=== PATIENT | female | born 1995 | race African-American/Black ===

== ENCOUNTER 2020-11-08 08:53 | Inpatient (IN) | payer OTHER, MEDICAID ==
[~2020-11-08] VITALS: Ht 170.2 cm; Wt 138.3 kg
[2020-11-08] MEDS ORDERED: HALO5TAB2 PO (12:18)
[2020-11-08] MEDS ORDERED: ESCI-8 PO (12:18)
[2020-11-08] MEDS ORDERED: PROP10TA73 PO (12:18)
[2020-11-08] MEDS ORDERED: LAMO100 PO (12:18)
[2020-11-08] MEDS ORDERED: TOPI100T37 PO (12:18)
[2020-11-08] MEDS ORDERED: QUET300T2 PO (12:18)
[2020-11-08 12:46] LABS: BASOPHILS % (AUTO) 0.5 % (0.0-2.0); EOSINOPHILS % (AUTO) 0.9 % (1.0-6.0); HEMATOCRIT 33.7 % (36-46); HEMOGLOBIN 10.4 g/dL (12.0-16.0); LYMPHOCYTES % (AUTO) 27.8 % (22.0-44.0); MEAN CORPUSCULAR HGB CONC 30.9 G/dL (31.0-37.0); MEAN CORPUSCULAR VOLUME 78 fL (80-100); MONOCYTES # (AUTO) 0.4 K/uL (0.1-1.0); MONOCYTES % (AUTO) 5.7 % (2.0-9.0); NEUTROPHILS # (AUTO) 4.7 K/uL (1.8-7.7); NEUTROPHILS % (AUTO) 65.1 % (40.0-70.0); PLATELET COUNT (AUTO) 560 K/uL (150-450); RED BLOOD CELL COUNT(AUTO) 4.34 MIL/uL (4.00-5.20); RED CELL DISTRIBUTION WIDTH 18.4 % (11.5-14.5)
[2020-11-08 13:07] LABS: ALANINE AMINOTRANSFERASE 12 U/L (12-78); ALBUMIN 2.7 g/dL (3.4-5.0); ALKALINE PHOSPHATASE 89 U/L (46-116); ANION GAP 9 mmol/L (8-16); ASPARTATE AMINOTRANSFERASE 12 U/L (15-37); CARBON DIOXIDE 21 mmol/L (22-29); CHLORIDE 105 mmol/L (98-107); CREATININE 0.97 mg/dL (0.60-1.30); GLOMERULAR FILTR. RATE CALC > 60 mL/min (>60); GLUCOSE,RANDOM 108 mg/dL (70-110); POTASSIUM 3.8 mmol/L (3.5-5.1); SODIUM SERUM 135 mmol/L (136-145); TOTAL PROTEIN, SERUM 8.4 g/dL (6.4-8.2); UREA NITROGEN, BLOOD 7 mg/dL (7-18)
[2020-11-08 13:24] LABS: BILIRUBIN,TOTAL 0.1 mg/dL (0.1-1.0); CALCIUM, TOTAL 8.5 mg/dL (8.8-10.5)
[2020-11-08 16:09] LABS: HCG,QUANTITATIVE 1 mIU/mL (0-6)
[2020-11-08 16:22] LABS: COVID AG,FIA SOURCE NASOPHARYNGEAL
[2020-11-08 18:04] VITALS: BP 140/91
[2020-11-08] MEDS ORDERED: INFLUENZA VIRUS VACCINE QVS 2020-21 (6MO+)/PF 60 MCG/0.5 ML SYRINGE IM ONE (18:15)
[2020-11-08] MEDS: LORazepam 2 MG TABLET PO PRN (20:11)
[2020-11-08] MEDS: HALOPERIDOL 5 MG TABLET PO PRN (21:20)
[2020-11-09 08:25] VITALS: BP 126/72
[2020-11-09] MEDS ORDERED: ACETAMINOPHEN 325 MG TABLET PO PRN (09:00)
[2020-11-09] MEDS ORDERED: ALBUTEROL SULFATE HFA 90 MCG/PUFF 8 GM INHALER IH PRN (09:00)
[2020-11-09] MEDS ORDERED: NICOTINE 14 MG/24 HOUR PATCH TD PRN (09:00)
[2020-11-09] MEDS ORDERED: PETROLATUM,WHITE 28 GM JELLY TP PRN (09:00)
[2020-11-09] MEDS ORDERED: LOPERAMIDE HCL 2 MG CAPSULE PO PRN (09:00)
[2020-11-09] MEDS ORDERED: CloNIDine HCL 0.1 MG TABLET PO PRN (09:00)
[2020-11-09] MEDS ORDERED: IBUPROFEN 400 MG TABLET PO PRN (09:00)
[2020-11-09] MEDS ORDERED: MAGNESIUM HYDROXIDE SUSPENSION 30 ML UDCUP PO PRN (09:00)
[2020-11-09] MEDS ORDERED: DOCUSATE SODIUM 100 MG CAPSULE PO PRN (09:00)
[2020-11-09] MEDS ORDERED: MAG HYDROX/AL HYDROX/SIMETH ES 30 ML SUSPENSION UDCUP PO PRN (09:00)
[2020-11-09] MEDS ORDERED: GuaiFENesin/D-METHORPHAN [SUGAR-FREE] 200-20MG/10 ML SYRUP UDCUP PO PRN (09:00)
[2020-11-09] MEDS: HALOPERIDOL 5 MG TABLET PO PRN ×2 (09:21→21:16)
[2020-11-09] MEDS: PROPRANOLOL HCL 10 MG TABLET PO SCH ×2 (09:21→17:40)
[2020-11-09] MEDS: LORazepam 2 MG TABLET PO PRN (09:22)
[2020-11-09] MEDS: ESCITALOPRAM OXALATE 10 MG TABLET PO SCH (12:33)
[2020-11-09] MEDS: QUEtiapine FUMARATE 25 MG TABLET PO SCH ×2 (12:33→16:05)
[2020-11-09 16:00] VITALS: BP 97/60
[2020-11-09] MEDS: TOPIRAMATE 100 MG TABLET PO SCH (16:05)
[2020-11-09 16:33] LABS: GLUCOMETER DEV NAME(LOC) 3E.C; GLUCOSE,POINT OF CARE 101 MG/DL (70-110)
[2020-11-09] MEDS ORDERED: PROPRANOLOL HCL 10 MG TABLET PO SCH (17:00)
[2020-11-09] MEDS: LamoTRIgine 100 MG TABLET PO SCH (20:20)
[2020-11-09] MEDS: QUEtiapine FUMARATE 300 MG TABLET PO SCH (20:20)
[2020-11-10 07:05] LABS: GLUCOMETER DEV NAME(LOC) 3E.C; GLUCOSE,POINT OF CARE 81 MG/DL (70-110)
[2020-11-10 08:00] VITALS: BP 109/65
[2020-11-10] MEDS: PROPRANOLOL HCL 10 MG TABLET PO SCH ×2 (08:12→16:23)
[2020-11-10] MEDS: ESCITALOPRAM OXALATE 10 MG TABLET PO SCH (08:12)
[2020-11-10] MEDS: QUEtiapine FUMARATE 25 MG TABLET PO SCH ×3 (08:13→16:23)
[2020-11-10] MEDS: TOPIRAMATE 100 MG TABLET PO SCH ×2 (08:13→16:24)
[2020-11-10] MEDS: LORazepam 2 MG TABLET PO PRN (13:42)
[2020-11-10] MEDS: HALOPERIDOL 5 MG TABLET PO PRN (16:29)
[2020-11-10 16:39] LABS: GLUCOMETER DEV NAME(LOC) 3E.C; GLUCOSE,POINT OF CARE 104 MG/DL (70-110)
[2020-11-10 16:56] VITALS: BP 135/84
[2020-11-10] MEDS: QUEtiapine FUMARATE 300 MG TABLET PO SCH (20:22)
[2020-11-10] MEDS: LamoTRIgine 100 MG TABLET PO SCH (20:22)
[2020-11-11 08:00] VITALS: BP 120/75
[2020-11-11] MEDS: QUEtiapine FUMARATE 25 MG TABLET PO SCH ×3 (08:09→16:32)
[2020-11-11] MEDS: LORazepam 2 MG TABLET PO PRN ×3 (08:09→21:57)
[2020-11-11] MEDS: HALOPERIDOL 5 MG TABLET PO PRN ×2 (08:09→12:17)
[2020-11-11] MEDS: PROPRANOLOL HCL 10 MG TABLET PO SCH ×2 (08:10→16:32)
[2020-11-11] MEDS: ESCITALOPRAM OXALATE 10 MG TABLET PO SCH (08:10)
[2020-11-11] MEDS: TOPIRAMATE 100 MG TABLET PO SCH ×2 (08:10→16:32)
[2020-11-11 16:29] VITALS: BP 128/77
[2020-11-11 16:31] LABS: GLUCOMETER DEV NAME(LOC) 3E.C; GLUCOSE,POINT OF CARE 81 MG/DL (70-110)
[2020-11-11] MEDS: LamoTRIgine 100 MG TABLET PO SCH (20:28)
[2020-11-11] MEDS: QUEtiapine FUMARATE 300 MG TABLET PO SCH (20:28)
[2020-11-12 06:55] LABS: GLUCOMETER DEV NAME(LOC) 3E.C; GLUCOSE,POINT OF CARE 96 MG/DL (70-110)
[2020-11-12 08:00] VITALS: BP 102/79
[2020-11-12] MEDS: QUEtiapine FUMARATE 25 MG TABLET PO SCH ×3 (08:59→16:18)
[2020-11-12] MEDS: TOPIRAMATE 100 MG TABLET PO SCH ×2 (08:59→16:18)
[2020-11-12] MEDS: ESCITALOPRAM OXALATE 10 MG TABLET PO SCH (09:00)
[2020-11-12] MEDS: PROPRANOLOL HCL 10 MG TABLET PO SCH ×2 (09:00→16:18)
[2020-11-12] MEDS: LORazepam 2 MG TABLET PO PRN ×2 (12:18→19:13)
[2020-11-12 16:30] VITALS: BP 115/64
[2020-11-12 16:35] LABS: GLUCOMETER DEV NAME(LOC) 3E.C; GLUCOSE,POINT OF CARE 118 MG/DL (70-110)
[2020-11-12] MEDS: HALOPERIDOL 5 MG TABLET PO PRN (17:28)
[2020-11-12] MEDS: QUEtiapine FUMARATE 300 MG TABLET PO SCH (20:03)
[2020-11-12] MEDS: LamoTRIgine 100 MG TABLET PO SCH (20:03)
[2020-11-13 08:00] VITALS: BP 133/80
[2020-11-13] MEDS: QUEtiapine FUMARATE 25 MG TABLET PO SCH ×3 (08:35→16:00)
[2020-11-13] MEDS: PROPRANOLOL HCL 10 MG TABLET PO SCH ×2 (08:35→16:00)
[2020-11-13] MEDS: ESCITALOPRAM OXALATE 10 MG TABLET PO SCH (08:35)
[2020-11-13] MEDS: TOPIRAMATE 100 MG TABLET PO SCH ×2 (08:35→16:00)
[2020-11-13] MEDS: HALOPERIDOL 5 MG TABLET PO PRN ×2 (09:15→16:00)
[2020-11-13] MEDS: LORazepam 2 MG TABLET PO PRN ×2 (09:15→20:26)
[2020-11-13 16:20] LABS: GLUCOMETER DEV NAME(LOC) 3E.C; GLUCOSE,POINT OF CARE 95 MG/DL (70-110)
[2020-11-13 16:28] VITALS: BP 100/60
[2020-11-13] MEDS: LamoTRIgine 100 MG TABLET PO SCH (20:05)
[2020-11-13] MEDS: QUEtiapine FUMARATE 300 MG TABLET PO SCH (20:05)
[2020-11-14 08:25] VITALS: BP 111/72
[2020-11-14] MEDS: ESCITALOPRAM OXALATE 10 MG TABLET PO SCH (08:36)
[2020-11-14] MEDS: TOPIRAMATE 100 MG TABLET PO SCH ×2 (08:36→16:59)
[2020-11-14] MEDS: LORazepam 2 MG TABLET PO PRN (08:36)
[2020-11-14] MEDS: QUEtiapine FUMARATE 25 MG TABLET PO SCH ×3 (08:36→16:59)
[2020-11-14] MEDS: HALOPERIDOL 5 MG TABLET PO PRN (08:36)
[2020-11-14] MEDS: PROPRANOLOL HCL 10 MG TABLET PO SCH ×2 (08:36→16:59)
[2020-11-14 16:32] LABS: GLUCOMETER DEV NAME(LOC) 3E.C; GLUCOSE,POINT OF CARE 90 MG/DL (70-110)
[2020-11-14 17:10] VITALS: BP 140/86
[2020-11-14 19:26] LABS: COVID AG,FIA SOURCE NASOPHARYNGEAL
[2020-11-14] MEDS: QUEtiapine FUMARATE 300 MG TABLET PO SCH (20:23)
[2020-11-14] MEDS: LamoTRIgine 100 MG TABLET PO SCH (20:23)
[2020-11-15 07:57] LABS: GLUCOMETER DEV NAME(LOC) 3E.C; GLUCOSE,POINT OF CARE 91 MG/DL (70-110)
[2020-11-15 08:06] VITALS: BP 122/74
[2020-11-15 09:24] LABS: HEMOGLOBIN A1C 5.8 % (3.8-5.6)
[2020-11-15 09:40] LABS: CHOL/HDL RATIO 4.6 (3.9-5.7)
[2020-11-15] MEDS: PROPRANOLOL HCL 10 MG TABLET PO SCH ×2 (09:49→16:32)
[2020-11-15] MEDS: ESCITALOPRAM OXALATE 10 MG TABLET PO SCH (09:49)
[2020-11-15] MEDS: TOPIRAMATE 100 MG TABLET PO SCH ×2 (09:49→16:32)
[2020-11-15] MEDS: HALOPERIDOL 5 MG TABLET PO PRN ×2 (09:50→13:50)
[2020-11-15] MEDS: QUEtiapine FUMARATE 25 MG TABLET PO SCH ×3 (09:50→16:32)
[2020-11-15] MEDS: LORazepam 2 MG TABLET PO PRN ×2 (09:50→13:50)
[2020-11-15 16:15] VITALS: BP 120/72
[2020-11-15 16:57] LABS: GLUCOMETER DEV NAME(LOC) 3E.C; GLUCOSE,POINT OF CARE 93 MG/DL (70-110)
[2020-11-15] MEDS: LamoTRIgine 100 MG TABLET PO SCH (20:27)
[2020-11-15] MEDS: QUEtiapine FUMARATE 300 MG TABLET PO SCH (20:27)
[2020-11-16 06:51] LABS: GLUCOMETER DEV NAME(LOC) 3E.C; GLUCOSE,POINT OF CARE 73 MG/DL (70-110)
[2020-11-16] MEDS: QUEtiapine FUMARATE 25 MG TABLET PO SCH ×3 (09:00→16:15)
[2020-11-16] MEDS: TOPIRAMATE 100 MG TABLET PO SCH ×2 (09:00→16:15)
[2020-11-16] MEDS: ESCITALOPRAM OXALATE 10 MG TABLET PO SCH (09:00)
[2020-11-16] MEDS: PROPRANOLOL HCL 10 MG TABLET PO SCH ×2 (09:00→16:15)
[2020-11-16] MEDS: LORazepam 2 MG TABLET PO PRN (12:24)
[2020-11-16] MEDS: HALOPERIDOL 5 MG TABLET PO PRN (12:52)
[2020-11-16] MEDS ORDERED: LORazepam 2 MG/ML VIAL ONE (14:29)
[2020-11-16] MEDS ORDERED: DiphenhydrAMINE HCL 50 MG/ML VIAL ONE (14:29)
[2020-11-16] MEDS ORDERED: HALOPERIDOL LACTATE 5 MG/ML VIAL ONE (14:29)
[2020-11-16] MEDS ORDERED: DiphenhydrAMINE HCL 50 MG/ML VIAL IM ONE (14:30)
[2020-11-16] MEDS ORDERED: HALOPERIDOL LACTATE 5 MG/ML VIAL IM ONE (14:30)
[2020-11-16] MEDS ORDERED: LORazepam 2 MG/ML VIAL IM ONE (14:30)
[2020-11-16 17:07] VITALS: BP 115/68
[2020-11-16 17:50] LABS: GLUCOMETER DEV NAME(LOC) 3E.C; GLUCOSE,POINT OF CARE 90 MG/DL (70-110)
[2020-11-16] MEDS: LamoTRIgine 100 MG TABLET PO SCH (20:49)
[2020-11-16] MEDS: QUEtiapine FUMARATE 300 MG TABLET PO SCH (20:49)
[2020-11-17] MEDS: ESCITALOPRAM OXALATE 10 MG TABLET PO SCH (08:02)
[2020-11-17] MEDS: TOPIRAMATE 100 MG TABLET PO SCH ×2 (08:02→16:31)
[2020-11-17] MEDS: QUEtiapine FUMARATE 25 MG TABLET PO SCH ×3 (08:03→16:30)
[2020-11-17] MEDS: PROPRANOLOL HCL 10 MG TABLET PO SCH ×2 (08:04→16:30)
[2020-11-17 08:20] VITALS: BP 120/73
[2020-11-17] MEDS: LORazepam 2 MG TABLET PO PRN (08:34)
[2020-11-17] MEDS: HALOPERIDOL 5 MG TABLET PO PRN (08:34)
[2020-11-17 09:34] LABS: GLUCOMETER DEV NAME(LOC) 3E.C; GLUCOSE,POINT OF CARE 80 MG/DL (70-110)
[2020-11-17 16:46] LABS: GLUCOMETER DEV NAME(LOC) 3E.C; GLUCOSE,POINT OF CARE 99 MG/DL (70-110)
[2020-11-17 16:58] VITALS: BP 125/76
[2020-11-17] MEDS: QUEtiapine FUMARATE 300 MG TABLET PO SCH (20:30)
[2020-11-17] MEDS: LamoTRIgine 100 MG TABLET PO SCH (20:30)
[2020-11-18 06:41] LABS: GLUCOMETER DEV NAME(LOC) 3E.C; GLUCOSE,POINT OF CARE 84 MG/DL (70-110)
[2020-11-18 08:00] VITALS: BP 100/56
[2020-11-18] MEDS: TOPIRAMATE 100 MG TABLET PO SCH ×2 (08:38→16:01)
[2020-11-18] MEDS: QUEtiapine FUMARATE 25 MG TABLET PO SCH ×3 (08:38→16:01)
[2020-11-18] MEDS: LORazepam 2 MG TABLET PO PRN (08:39)
[2020-11-18] MEDS: HALOPERIDOL 5 MG TABLET PO PRN (08:39)
[2020-11-18] MEDS: ESCITALOPRAM OXALATE 10 MG TABLET PO SCH (08:39)
[2020-11-18] MEDS: PROPRANOLOL HCL 10 MG TABLET PO SCH ×2 (08:39→16:01)
[2020-11-18 16:00] VITALS: BP 120/66
[2020-11-18 16:18] LABS: GLUCOMETER DEV NAME(LOC) 3E.C; GLUCOSE,POINT OF CARE 97 MG/DL (70-110)
[2020-11-18] MEDS: LamoTRIgine 100 MG TABLET PO SCH (20:10)
[2020-11-18] MEDS: QUEtiapine FUMARATE 300 MG TABLET PO SCH (20:10)
[2020-11-19 06:26] LABS: GLUCOMETER DEV NAME(LOC) 3E.C; GLUCOSE,POINT OF CARE 70 MG/DL (70-110)
[2020-11-19 08:00] VITALS: BP 114/68
[2020-11-19] MEDS: ESCITALOPRAM OXALATE 10 MG TABLET PO SCH (08:16)
[2020-11-19] MEDS: PROPRANOLOL HCL 10 MG TABLET PO SCH ×2 (08:16→16:24)
[2020-11-19] MEDS: TOPIRAMATE 100 MG TABLET PO SCH ×2 (08:16→16:24)
[2020-11-19] MEDS: QUEtiapine FUMARATE 25 MG TABLET PO SCH ×3 (08:16→16:24)
[2020-11-19] MEDS: LORazepam 2 MG TABLET PO PRN (11:11)
[2020-11-19] MEDS: HALOPERIDOL 5 MG TABLET PO PRN (11:11)
[2020-11-19 16:24] VITALS: BP 128/72
[2020-11-19 17:17] LABS: GLUCOMETER DEV NAME(LOC) 3E.C; GLUCOSE,POINT OF CARE 95 MG/DL (70-110)
[2020-11-19] MEDS: QUEtiapine FUMARATE 300 MG TABLET PO SCH (20:55)
[2020-11-19] MEDS: LamoTRIgine 100 MG TABLET PO SCH (20:55)
[2020-11-20 05:35] LABS: GLUCOMETER DEV NAME(LOC) 3E.C; GLUCOSE,POINT OF CARE 83 MG/DL (70-110)
[2020-11-20] MEDS: HALOPERIDOL 5 MG TABLET PO PRN (05:43)
[2020-11-20] MEDS: LORazepam 2 MG TABLET PO PRN (05:43)
[2020-11-20 08:00] VITALS: BP 136/94
[2020-11-20] MEDS: ESCITALOPRAM OXALATE 10 MG TABLET PO SCH (09:00)
[2020-11-20] MEDS: PROPRANOLOL HCL 10 MG TABLET PO SCH ×2 (09:00→16:08)
[2020-11-20] MEDS: TOPIRAMATE 100 MG TABLET PO SCH ×2 (09:00→16:08)
[2020-11-20] MEDS: QUEtiapine FUMARATE 25 MG TABLET PO SCH ×3 (09:00→16:08)
[2020-11-20] MEDS: ONDANSETRON HCL 4 MG TABLET PO PRN ×2 (13:20→23:05)
[2020-11-20] MEDS ORDERED: ONDANSETRON HCL 4 MG/2 ML VIAL IM ONE (14:45)
[2020-11-20 17:00] VITALS: BP 119/78
[2020-11-20 17:14] VITALS: BP 119/78
[2020-11-20 17:16] LABS: GLUCOMETER DEV NAME(LOC) 3E.C; GLUCOSE,POINT OF CARE 125 MG/DL (70-110)
[2020-11-20 20:40] VITALS: BP 159/85
[2020-11-20] MEDS: QUEtiapine FUMARATE 300 MG TABLET PO SCH (21:00)
[2020-11-20] MEDS: LamoTRIgine 100 MG TABLET PO SCH (21:00)
[2020-11-21] MEDS: ZOLPIDEM TARTRATE 10 MG TABLET PO PRN (00:09)
[2020-11-21 00:10] VITALS: BP 158/78
[2020-11-21] MEDS: METOCLOPRAMIDE HCL 5 MG TABLET PO SCH ×3 (00:10→16:25)
[2020-11-21] MEDS: LORazepam 2 MG TABLET PO PRN ×2 (06:07→12:31)
[2020-11-21] MEDS: HALOPERIDOL 5 MG TABLET PO PRN ×3 (06:08→16:25)
[2020-11-21 07:13] LABS: GLUCOMETER DEV NAME(LOC) 3E.C; GLUCOSE,POINT OF CARE 101 MG/DL (70-110)
[2020-11-21 08:02] VITALS: BP 124/73
[2020-11-21] MEDS: PROPRANOLOL HCL 10 MG TABLET PO SCH ×2 (08:14→16:24)
[2020-11-21] MEDS: TOPIRAMATE 100 MG TABLET PO SCH ×2 (08:14→16:26)
[2020-11-21] MEDS: ESCITALOPRAM OXALATE 10 MG TABLET PO SCH (08:14)
[2020-11-21] MEDS: QUEtiapine FUMARATE 25 MG TABLET PO SCH ×3 (08:14→16:25)
[2020-11-21 15:48] LABS: COVID AG,FIA SOURCE NASOPHARYNGEAL
[2020-11-21 16:33] LABS: GLUCOMETER DEV NAME(LOC) 3E.C; GLUCOSE,POINT OF CARE 95 MG/DL (70-110)
[2020-11-21 18:44] VITALS: BP 127/72
[2020-11-21] MEDS: QUEtiapine FUMARATE 300 MG TABLET PO SCH (20:23)
[2020-11-21] MEDS: LamoTRIgine 100 MG TABLET PO SCH (20:23)
[2020-11-22 07:07] LABS: GLUCOMETER DEV NAME(LOC) 3E.C; GLUCOSE,POINT OF CARE 87 MG/DL (70-110)
[2020-11-22] MEDS: HALOPERIDOL 5 MG TABLET PO PRN (07:50)
[2020-11-22] MEDS: TOPIRAMATE 100 MG TABLET PO SCH ×2 (07:50→16:31)
[2020-11-22] MEDS: ESCITALOPRAM OXALATE 10 MG TABLET PO SCH (07:50)
[2020-11-22] MEDS: LORazepam 2 MG TABLET PO PRN (07:50)
[2020-11-22] MEDS: QUEtiapine FUMARATE 25 MG TABLET PO SCH ×3 (07:50→16:30)
[2020-11-22] MEDS: PROPRANOLOL HCL 10 MG TABLET PO SCH ×2 (07:50→16:30)
[2020-11-22] MEDS: METOCLOPRAMIDE HCL 5 MG TABLET PO SCH ×3 (07:51→16:30)
[2020-11-22 08:00] VITALS: BP 128/83
[2020-11-22 16:00] VITALS: BP 131/89
[2020-11-22 16:48] LABS: GLUCOMETER DEV NAME(LOC) 3E.C; GLUCOSE,POINT OF CARE 96 MG/DL (70-110)
[2020-11-22] MEDS: LamoTRIgine 100 MG TABLET PO SCH (20:10)
[2020-11-22] MEDS: QUEtiapine FUMARATE 300 MG TABLET PO SCH (20:11)
[2020-11-23 06:48] LABS: GLUCOMETER DEV NAME(LOC) 3E.C; GLUCOSE,POINT OF CARE 96 MG/DL (70-110)
[2020-11-23 08:00] VITALS: BP 105/67
[2020-11-23] MEDS: QUEtiapine FUMARATE 25 MG TABLET PO SCH ×3 (08:12→16:26)
[2020-11-23] MEDS: TOPIRAMATE 100 MG TABLET PO SCH ×2 (08:12→16:26)
[2020-11-23] MEDS: ESCITALOPRAM OXALATE 10 MG TABLET PO SCH (08:14)
[2020-11-23] MEDS: HALOPERIDOL 5 MG TABLET PO PRN ×2 (08:15→20:53)
[2020-11-23] MEDS: LORazepam 2 MG TABLET PO PRN ×2 (08:15→20:28)
[2020-11-23] MEDS: METOCLOPRAMIDE HCL 5 MG TABLET PO SCH ×3 (08:15→16:26)
[2020-11-23] MEDS: PROPRANOLOL HCL 10 MG TABLET PO SCH ×2 (08:15→16:26)
[2020-11-23] MEDS: GuanFACINE HCL 1 MG TABLET PO SCH (10:00)
[2020-11-23 15:45] VITALS: BP 113/65
[2020-11-23 16:28] LABS: GLUCOMETER DEV NAME(LOC) 3E.C; GLUCOSE,POINT OF CARE 83 MG/DL (70-110)
[2020-11-23] MEDS: QUEtiapine FUMARATE 300 MG TABLET PO SCH (20:28)
[2020-11-23] MEDS: LamoTRIgine 100 MG TABLET PO SCH (20:28)
[2020-11-24] MEDS: METOCLOPRAMIDE HCL 5 MG TABLET PO SCH ×4 (00:03→23:54)
[2020-11-24 07:09] LABS: GLUCOMETER DEV NAME(LOC) 3E.C; GLUCOSE,POINT OF CARE 82 MG/DL (70-110)
[2020-11-24] MEDS: PROPRANOLOL HCL 10 MG TABLET PO SCH ×2 (07:40→16:08)
[2020-11-24] MEDS: ESCITALOPRAM OXALATE 10 MG TABLET PO SCH (07:41)
[2020-11-24] MEDS: QUEtiapine FUMARATE 25 MG TABLET PO SCH ×3 (07:41→16:08)
[2020-11-24] MEDS: GuanFACINE HCL 1 MG TABLET PO SCH (07:41)
[2020-11-24] MEDS: TOPIRAMATE 100 MG TABLET PO SCH ×2 (07:42→16:10)
[2020-11-24] MEDS: LORazepam 2 MG TABLET PO PRN ×3 (07:55→17:56)
[2020-11-24 08:00] VITALS: BP 116/63
[2020-11-24 16:07] VITALS: BP 108/62
[2020-11-24] MEDS: HALOPERIDOL 5 MG TABLET PO PRN (16:07)
[2020-11-24 16:28] LABS: GLUCOMETER DEV NAME(LOC) 3E.C; GLUCOSE,POINT OF CARE 92 MG/DL (70-110)
[2020-11-24] MEDS: LamoTRIgine 100 MG TABLET PO SCH (20:11)
[2020-11-24] MEDS: QUEtiapine FUMARATE 300 MG TABLET PO SCH (20:12)
[2020-11-24] MEDS: ZOLPIDEM TARTRATE 10 MG TABLET PO PRN (23:54)
[2020-11-25 06:31] LABS: GLUCOMETER DEV NAME(LOC) 3E.C; GLUCOSE,POINT OF CARE 84 MG/DL (70-110)
[2020-11-25 08:00] VITALS: BP 134/71
[2020-11-25] MEDS: METOCLOPRAMIDE HCL 5 MG TABLET PO SCH ×3 (08:03→23:47)
[2020-11-25] MEDS: QUEtiapine FUMARATE 25 MG TABLET PO SCH ×3 (08:04→16:05)
[2020-11-25] MEDS: ESCITALOPRAM OXALATE 10 MG TABLET PO SCH (08:04)
[2020-11-25] MEDS: PROPRANOLOL HCL 10 MG TABLET PO SCH ×2 (08:05→16:05)
[2020-11-25] MEDS: TOPIRAMATE 100 MG TABLET PO SCH ×2 (08:05→16:06)
[2020-11-25] MEDS: GuanFACINE HCL 1 MG TABLET PO SCH (08:05)
[2020-11-25] MEDS: HALOPERIDOL 5 MG TABLET PO PRN (08:06)
[2020-11-25] MEDS: LORazepam 2 MG TABLET PO PRN (08:06)
[2020-11-25 16:01] VITALS: BP 136/78
[2020-11-25 17:17] VITALS: BP 104/71
[2020-11-25] MEDS ORDERED: GuaiFENesin/D-METHORPHAN [SUGAR-FREE] 200-20MG/10 ML SYRUP UDCUP PO PRN (17:45)
[2020-11-25] MEDS: QUEtiapine FUMARATE 300 MG TABLET PO SCH (20:52)
[2020-11-25] MEDS: LamoTRIgine 100 MG TABLET PO SCH (20:52)
[2020-11-25] MEDS: ZOLPIDEM TARTRATE 10 MG TABLET PO PRN (23:47)
[2020-11-26 07:12] LABS: GLUCOMETER DEV NAME(LOC) 3E.C; GLUCOSE,POINT OF CARE 87 MG/DL (70-110)
[2020-11-26] MEDS: PROPRANOLOL HCL 10 MG TABLET PO SCH ×2 (08:09→16:23)
[2020-11-26] MEDS: TOPIRAMATE 100 MG TABLET PO SCH ×2 (08:09→16:23)
[2020-11-26] MEDS: METOCLOPRAMIDE HCL 5 MG TABLET PO SCH ×2 (08:09→16:23)
[2020-11-26] MEDS: ESCITALOPRAM OXALATE 10 MG TABLET PO SCH (08:09)
[2020-11-26] MEDS: GuanFACINE HCL 1 MG TABLET PO SCH ×2 (08:10→20:57)
[2020-11-26] MEDS: QUEtiapine FUMARATE 25 MG TABLET PO SCH ×3 (08:10→16:23)
[2020-11-26 08:47] VITALS: BP 124/85
[2020-11-26 16:12] VITALS: BP 130/78
[2020-11-26 16:22] LABS: GLUCOMETER DEV NAME(LOC) 3E.C; GLUCOSE,POINT OF CARE 96 MG/DL (70-110)
[2020-11-26] MEDS ORDERED: LORazepam 2 MG/ML VIAL ONE (20:12)
[2020-11-26] MEDS ORDERED: HALOPERIDOL LACTATE 5 MG/ML VIAL ONE (20:12)
[2020-11-26] MEDS ORDERED: DiphenhydrAMINE HCL 50 MG/ML VIAL ONE (20:12)
[2020-11-26] MEDS ORDERED: HALOPERIDOL LACTATE 5 MG/ML VIAL IM ONE (20:15)
[2020-11-26] MEDS ORDERED: DiphenhydrAMINE HCL 50 MG/ML VIAL IM ONE (20:15)
[2020-11-26] MEDS ORDERED: LORazepam 2 MG/ML VIAL IM ONE (20:15)
[2020-11-26] MEDS: LamoTRIgine 100 MG TABLET PO SCH (20:57)
[2020-11-26] MEDS: QUEtiapine FUMARATE 300 MG TABLET PO SCH (20:57)
[2020-11-27] MEDS: METOCLOPRAMIDE HCL 5 MG TABLET PO SCH ×3 (00:27→16:17)
[2020-11-27 06:55] LABS: GLUCOMETER DEV NAME(LOC) 3E.C; GLUCOSE,POINT OF CARE 81 MG/DL (70-110)
[2020-11-27 08:02] VITALS: BP 117/90
[2020-11-27] MEDS: QUEtiapine FUMARATE 25 MG TABLET PO SCH ×3 (08:50→16:17)
[2020-11-27] MEDS: TOPIRAMATE 100 MG TABLET PO SCH ×2 (08:50→16:17)
[2020-11-27] MEDS: PROPRANOLOL HCL 10 MG TABLET PO SCH ×2 (08:50→16:17)
[2020-11-27] MEDS: ESCITALOPRAM OXALATE 10 MG TABLET PO SCH (08:51)
[2020-11-27] MEDS: GuanFACINE HCL 1 MG TABLET PO SCH ×2 (08:51→20:11)
[2020-11-27] MEDS: HALOPERIDOL 5 MG TABLET PO PRN (11:21)
[2020-11-27] MEDS: LORazepam 2 MG TABLET PO PRN (11:28)
[2020-11-27 13:32] LABS: COVID AG,FIA SOURCE NASOPHARYNGEAL
[2020-11-27 16:01] VITALS: BP 118/70
[2020-11-27 16:33] LABS: GLUCOMETER DEV NAME(LOC) 3E.C; GLUCOSE,POINT OF CARE 83 MG/DL (70-110)
[2020-11-27] MEDS: LamoTRIgine 100 MG TABLET PO SCH (20:11)
[2020-11-27] MEDS: QUEtiapine FUMARATE 300 MG TABLET PO SCH (20:11)
[2020-11-27] MEDS: ZOLPIDEM TARTRATE 10 MG TABLET PO PRN (23:39)
[2020-11-28 06:48] LABS: GLUCOMETER DEV NAME(LOC) 3E.C; GLUCOSE,POINT OF CARE 106 MG/DL (70-110)
[2020-11-28 08:00] VITALS: BP 117/82
[2020-11-28] MEDS: TOPIRAMATE 100 MG TABLET PO SCH ×2 (08:15→16:27)
[2020-11-28] MEDS: PROPRANOLOL HCL 10 MG TABLET PO SCH ×2 (08:15→16:27)
[2020-11-28] MEDS: ESCITALOPRAM OXALATE 10 MG TABLET PO SCH (08:15)
[2020-11-28] MEDS: QUEtiapine FUMARATE 25 MG TABLET PO SCH ×3 (08:15→16:27)
[2020-11-28] MEDS: METOCLOPRAMIDE HCL 5 MG TABLET PO SCH ×4 (08:16→23:28)
[2020-11-28] MEDS: HALOPERIDOL 5 MG TABLET PO PRN ×2 (08:16→16:27)
[2020-11-28] MEDS: GuanFACINE HCL 1 MG TABLET PO SCH ×2 (08:16→20:07)
[2020-11-28] MEDS: LORazepam 2 MG TABLET PO PRN ×2 (08:16→16:27)
[2020-11-28 16:21] VITALS: BP 137/77
[2020-11-28 16:27] LABS: GLUCOMETER DEV NAME(LOC) 3E.C; GLUCOSE,POINT OF CARE 103 MG/DL (70-110)
[2020-11-28] MEDS: LamoTRIgine 100 MG TABLET PO SCH (20:07)
[2020-11-28] MEDS: QUEtiapine FUMARATE 300 MG TABLET PO SCH (20:08)
[2020-11-29] MEDS: ZOLPIDEM TARTRATE 10 MG TABLET PO PRN (00:53)
[2020-11-29] MEDS: HALOPERIDOL 5 MG TABLET PO PRN (00:53)
[2020-11-29 06:39] LABS: GLUCOMETER DEV NAME(LOC) 3E.C; GLUCOSE,POINT OF CARE 118 MG/DL (70-110)
[2020-11-29] MEDS: METOCLOPRAMIDE HCL 5 MG TABLET PO SCH ×2 (07:54→16:23)
[2020-11-29 08:00] VITALS: BP 130/82
[2020-11-29] MEDS: GuanFACINE HCL 1 MG TABLET PO SCH (08:55)
[2020-11-29] MEDS: TOPIRAMATE 100 MG TABLET PO SCH ×2 (08:56→16:23)
[2020-11-29] MEDS: PROPRANOLOL HCL 10 MG TABLET PO SCH ×2 (08:56→16:23)
[2020-11-29] MEDS: QUEtiapine FUMARATE 25 MG TABLET PO SCH ×3 (08:56→16:23)
[2020-11-29] MEDS: ESCITALOPRAM OXALATE 10 MG TABLET PO SCH (08:56)
[2020-11-29] MEDS ORDERED: TUBERCULIN, PURIFIED PROTEIN DERIVATIVE 5 TU/0.1 ML SYRINGE ID ONE (10:45)
[2020-11-29] MEDS: LORazepam 2 MG TABLET PO PRN (13:05)
[2020-11-29] MEDS ORDERED: ESCI-8 PO (15:56)
[2020-11-29] MEDS ORDERED: QUET300T2 PO (15:57)
[2020-11-29] MEDS ORDERED: GUAN1TAB22 PO (15:57)
[2020-11-29] MEDS ORDERED: QUET25TA PO ×2 (15:58→16:00)
[2020-11-29] MEDS ORDERED: LAMO100 PO (16:01)
[2020-11-29] MEDS ORDERED: PROP10TA73 PO (16:02)
[2020-11-29] MEDS ORDERED: METO5TAB95 PO (16:02)
[2020-11-29] MEDS ORDERED: TOPI100T37 PO (16:03)
[2020-11-29 16:29] VITALS: BP 117/74
== END 2020-11-29 16:35 | disposition home or self-care (01) | DRG 885 ==
LOC: EMS 08:53 → 3EC 17:36
DX: F20.0 Paranoid schizophrenia (principal); F79 Unspecified intellectual disabilities; E87.1 Hypo-osmolality and hyponatremia; Z68.42 Body mass index [BMI] 45.0-49.9, adult; D64.9 Anemia, unspecified; E66.9 Obesity, unspecified; Z20.822 Contact with and (suspected) exposure to COVID-19; I95.9 Hypotension, unspecified; F94.0 Selective mutism; G40.909 Epilepsy, unspecified, not intractable, without status epilepticus; Z28.21 Immunization not carried out because of patient refusal; Z59.0 Homelessness; Z79.899 Other long term (current) drug therapy
CPT/HCPCS: 83036; 87426; 99285; G0480; J1200; J1630; J2060; J2405; Q0162